=== PATIENT | male | born 2000 | race Caucasian/White ===

== ENCOUNTER 2022-10-23 12:19 | Emergency (ER) | payer BC ==
[2022-10-23 12:40] VITALS: RESP 18
[2022-10-23] MEDS ORDERED: methylPREDNISolone SOD SUCCI 125 MG/2 ML VIAL IV STA (12:59)
[2022-10-23] MEDS ORDERED: diphenhydrAMINE 50 MG/ML 1 ML VIAL IVP STA (12:59)
[2022-10-23] MEDS ORDERED: SODIUM CHLORIDE 0.9% 1,000 ML IV STA (12:59)
[2022-10-23] MEDS ORDERED: FAMOTIDINE 20 MG/2 ML VIAL IV STA (12:59)
--- NOTE | 2022-10-23 14:02 | ED ---
Allergic Reaction HPI - General Chief complaint: Allergic Reaction Stated complaint: Allergic Reaction Time Seen by Provider: 10/23/22 12:42 Source: patient, family, RN notes reviewed Mode of arrival: ambulatory Limitations: no limitations - History of Present Illness Initial Comments: This is a 22-year-old male who presents to the emergency department for concerns of an allergic reaction. States that he ate a protein bar today around 11:30am today. Almost immediately afterwards he started to develop a sore throat and difficulty talking. Reports some difficulty breathing. This did contain eggs and peanuts. States that he has had both eggs and peanuts before without any problems. Denies any history of allergies or allergic reactions in the past. He feels like symptoms have remained fairly steady since they started. Denies any fevers, chills, chest pain, palpitations, abdominal pain, nausea, vomiting, diarrhea, back pain, or headaches. MD Complaint: allergic reaction - Related Data Previous Rx's Medication Instructions Recorded Famotidine 20 mg PO DAILY 5 Days #5 tablet 10/23/22 predniSONE 50 mg PO DAILY 5 Days #5 tab 10/23/22 Allergies Allergy/AdvReac Type Severity Reaction Status Date / Time No Known Allergies Allergy Verified 10/23/22 13:54 Review of Systems ROS Statement: Those systems with pertinent positive or pertinent negative responses have been documented in the HPI. ROS Other: All systems not noted in ROS Statement are negative. Past Medical History Past Medical History: No Reported History History of Any Multi-Drug Resistant Organisms: None Reported Past Surgical History: No Surgical Hx Reported Smoking Status: Never smoker Past Alcohol Use History: Occasional Past Drug Use History: None Reported General Exam Limitations: no limitations General appearance: alert, other (Hoarse voice) Head exam: Present: atraumatic, normocephalic, normal inspection ENT exam: Present: normal exam, normal oropharynx, mucous membranes moist, other (No swelling of the uvula) Neck exam: Present: normal inspection. Absent: tenderness, meningismus, lymphadenopathy Respiratory exam: Present: normal lung sounds bilaterally. Absent: respiratory distress, wheezes, rales, rhonchi, stridor Cardiovascular Exam: Present: regular rate, normal rhythm, normal heart sounds. Absent: systolic murmur, diastolic murmur, rubs, gallop, clicks Neurological exam: Present: alert, oriented X3, CN II-XII intact Psychiatric exam: Present: normal affect, normal mood Skin exam: Present: warm, dry, intact, normal color. Absent: rash Course Vital Signs 10/23/22 10/23/22 10/23/22 12:35 14:02 14:59 Temperature 97.8 F 99 F Pulse Rate 75 88 75 Respiratory 18 18 18 Rate Blood Pressure 124/76 128/79 122/69 O2 Sat by Pulse 100 99 98 Oximetry Medical Decision Making - Medical Decision Making This is a 22-year-old male who presents to the emergency department for concerns of an allergic reaction. Was pt. sent in by a medical professional or institution? @ -No Did you speak to anyone other than the patient for history? @ -No Did you review nursing and triage notes? @ -Yes, and I agree, it is accurate with regards to the patient's symptoms. Were old charts reviewed? @ -No Differential Diagnosis? @ -Differential Allergic Reaction: Allergic reaction, anaphylaxis, panic attack, atopic dermatitis, contact dermatitis, sinusitis, pharyngitis, COVID, influenza, asthma exacerbation. This is not meant to be an all-inclusive list. EKG interpreted by me (3pts min.)? @ -Not obtained X-rays interpreted by me (1pt min.)? @ -Not obtained CT interpreted by me (1pt min.)? @ -Not obtained U/S interpreted by me (1pt. min.)? @ -Not obtained What testing was considered but not performed? (CT, X-rays, U/S, labs)? Why? @ -None What meds were considered but not given? Why? @ -None Did you discuss the management of the patient with other professionals? @ -No Did you reconcile home meds? @ -No Was smoking cessation discussed for >3mins.? @ -No Was critical care preformed (if so, how long)? @ -No Were there social determinants of health that impacted care today? How? (Homelessness, low income, unemployed, alcoholism, drug addiction, transportation, low edu. Level, literacy, decrease access to med. care, longterm, rehab)? @ -No Was there de-escalation of care discussed even if they declined? (Discuss DNR or withdrawal of care, Hospice)? @ -No What co-morbidities impacted this encounter? (DM, HTN, Smoking, COPD, CAD, Cancer, CVA, Hep., AIDS, mental health diagnosis, sleep apnea, morbid obesity)? @ -None Was patient admitted / discharged? @ -Discharged. Physical exam was entirely unremarkable aside from the patient having a somewhat hoarse voice. He was given an allergy cocktail consisting of IV fluids, Solu-Medrol, Benadryl, and Pepcid. He had significant relief in symptoms following the medication. It isn't entirely clear if this is related to an allergic reaction or another acute process. Will treat patient for an allergic reaction. Prescription for pepcid and prednisone provided with dosing instructions reviewed. Advised he take the first doses of these medications tomorrow, as he received medications in the emergency department. Also advised he continue with Benadryl and avoid eating those protein bars for the foreseeable future. Recommended he consider allergy testing as well. Undiagnosed new problem with uncertain prognosis? @ -None Drug Therapy requiring intensive monitoring for toxicity (Heparin, Nitro, Insulin, Cardizem)? @ -None Were any procedures done? @ -None Diagnosis/symptom? @ -Allergic reaction Acute, or Chronic, or Acute on Chronic? @ -Acute Uncomplicated (without systemic symptoms) or Complicated (systemic symptoms)? @ -Uncomplicated Side effects of treatment? @ -None Exacerbation, Progression, or Severe Exacerbation] @ -Not applicable Poses a threat to life or bodily function? @ -No Return precautions reviewed in depth, the patient is instructed to return to the emergency department with any new, worsening, or concerning symptoms. Patient verbalized understanding. This case was discussed in detail with the attending ED physician, Dr. Faby pablo. Presentation, findings, and treatment plan discussed in detail as well. Disposition Clinical Impression: Allergic reaction Disposition: HOME SELF-CARE Instructions (If sedation given, give patient instructions): Allergies (ED), General Allergic Reaction (ED) Additional Instructions: Return to the emergency department with any new, worsening, or concerning symptoms. Take the prednisone and famotidine daily, with your first doses starting tomorrow, as you received them in the emergency department today. You can also take Benadryl or another [id number] antihistamine. Avoid eating those protein bars for the foreseeable future. Also consider allergy testing for further evaluation. Follow up with your primary care provider in 1-2 days. Prescriptions: Famotidine 20 mg PO DAILY 5 Days #5 tablet predniSONE 50 mg PO DAILY 5 Days #5 tab Is patient prescribed a controlled substance at d/c from ED?: No Referrals: None,Stated [Primary Care Provider] - 1-2 days Forms: [facility]
[2022-10-23 15:02] VITALS: BP 122/69; PULSE 75; TEMP 99
== END 2022-10-23 15:02 | disposition home or self-care (01) ==
LOC: EC 12:19
DX: T78.01XA Anaphylactic reaction due to peanuts, initial encounter (principal)
CPT/HCPCS: 99283; 96374; 96375 ×2; 96361; J1200; J2930